=== PATIENT | female | born 1965 | race African-American/Black ===

== ENCOUNTER 2018-02-01 03:48 | Emergency (ER) | payer OTHER ==
[~2018-02-01] VITALS: Ht 170.2 cm; Wt 79.8 kg
[2018-02-01] MEDS ORDERED: TRAMADOL 50 MG50 MG PO (04:46)
[2018-02-01 05:18] VITALS: BP 120/76
== END 2018-02-01 05:20 | disposition home or self-care (01) ==
LOC: ER 03:48
DX: S02.5XXA Fracture of tooth (traumatic), initial encounter for closed fracture (principal); S01.511A Laceration without foreign body of lip, initial encounter; M79.641 Pain in right hand; W01.0XXA Fall on same level from slipping, tripping and stumbling without subsequent striking against object, initial encounter; Y92.89 Other specified places as the place of occurrence of the external cause; Y93.01 Activity, walking, marching and hiking; Y99.8 Other external cause status